=== PATIENT | female | born 1935 | race Caucasian/White ===

== ENCOUNTER 2016-06-17 14:50 | Emergency (ER) | payer MEDICARE, OTHER ==
[~2016-06-17] VITALS: Ht 165.1 cm; Wt 58.2 kg
[2016-06-17 15:10] VITALS: BP 150/61; PULSE 77; RESP 16; O2SAT 100
--- NOTE | 2016-06-17 17:08 | DRSVH ---
PROCEDURE: CT HIP LEFT W/O CONTRAST (38098) INDICATIONS: trauma/fall, suspicious x-ray TECHNIQUE: Noncontrast 3 mm axial sections acquired through the bony pelvis. Additional 3 mm axial sections acq uired through the symptomatic hip joint, with coronal and sagittal reformats. COMPARISON: [facility], CR, XR HIP 2VW LT, 06/16/2016, 17:23. FINDINGS: Image quality: Excellent. Bones: No displaced fracture visualized. Moderate-sized collar osteophytes and subchondral cystic payton nges are present at the hip joint. Severe degenerative changes are present in the visualized portions of the lumbar spine. Soft tissues: Visualized portions of bowel demonstrate normal caliber and are stool filled. No free p elvic fluid. The bladder is partially fluid-filled and thin-walled. IMPRESSION: Moderate osteoarthritis of the left hip. No displaced fractures visualized. Dictated by: Theresa Arroyo M.D. on 06/17/2016 at 16:59 Approved by: Theresa Arroyo M.D. on 06/17/2016 at 17:06
--- NOTE | 2016-06-17 17:35 | ED.REPORT ---
HPI-Hip/Pelvis Prob/Inj Date of Service Jun 17, 2016 ED Provider: Km Graham MD An 80 year old female with a history of balance and gait impairment presents to the ED complaining of hip pain onset after a fall that occurred 3 days ago.The pain causes difficultly with walking. Per , the patient was packing a bag that was on top of a bed in a motel room when she walked around the bed corner and tripped over bedding that was on the floor. Pain has been continuos since onset and the patient describes feeling"tilted" and that "nothing is working normally." Per , the pain is not as bad as it was on Thursday and he has to help her walk everywhere. The patient was seen yesterday at for radiograph which revealed a possible nondisplaced fracture. She was called today by and told to come into the ED with concern for fracture, and was told to get CT scan. The patient does not have a pacemaker. The patient and her were recently [place] [address] [place] where her skin was exposed to a lot of ice and debris.The patient reports that they have a weak bladder. Nursing Notes Stated Complaint: LEFT HIP PAIN AFTER FALL/SEEN AT [facility] Chief Complaint: Extremity Trauma Nursing Notes Reviewed: Yes (RetSKU not reconciled) Allergies: Coded Allergies: No Known Allergies (Unverified , 06/17/16) General Time Seen by Provider: 17:07 Chief Complaint Other (Hip pain) Hx Obtained From: Patient, Spouse Arrived By: Walk-in Onset Occurred: 3 days ago Symptom Duration: Since onset Severity: Current: Moderate Severity: Maximum: Moderate Recent Healthcare: Recent doctor visit Similar Sx Previous: No Past Medical History Past Medical History Balance and gait impairment. Has recieved Lymphedma therapy in the past. Denies having pacemaker. Review of Systems Review of Systems Note: Difficulty walking. Musculoskeletal: Reports: Extremity pain (hip pain) Complete sys rev & neg: except as marked. Respiratory: Denies: Non-productive cough Physical Exam Initial Vital Signs Vital Signs (First) Date Time Temp Pulse Resp B/P Pulse Ox O2 Delivery O2 Flow Rate FiO2 06/17/16 15:10 36.4 77 16 150/61 100 Room Air Initial VS: Reviewed, Vital signs normal Left Hip: Positive: Tenderness present... Can linternally and externally rotate eft hip without much pain. Can lift leg up without much pain. Left leg is neurovascularly intact. No visible wounds. General/Constitutional: Awake Patient is extremely demented and cannot give useful history. She is moving with no pain or discomfort. She has poor decision making capacity and limited insight. Head / Eyes: Atraumatic, Normocephalic, PERRL, EOMI Respiratory / Chest: Atraumatic, Breath sounds NL, Breath sounds = bilat, No respiratory distress, No rales, No rhonchi, No wheezing Cardiovascular: Heart rate NL, Regular rhythm, Heart sounds NL, No gallop, No murmurs, No rubs Abdomen: Atraumatic, No guarding, No rebound Skin: Warm, Dry Patient is cachectic. Neurologic Neurologic: Oriented X3, Speech NL ENT: Atraumatic, Mucous membranes moist Upper Extremity / MS: No swelling, No edema Wrist / Hand: No swelling, No edema Interpretation & Diagnostics Interpretation & Diagnostics: PROCEDURE: CT HIP LEFT W/O CONTRAST (12963) IMPRESSION: Moderate osteoarthritis of the left hip. No displaced fractures visualized. Dictated by: Theresa Arroyo M.D. on 06/17/2016 at 16:59 Approved by: Theresa Arroyo M.D. on 06/17/2016 at 17:06 PROCEDURE: MRI HIP LEFT WITHOUT CONTRAST ([id number] IMPRESSION: 1. Nondisplaced fracture of the anterior left acetabulum at the junction with the superior pubic ramus. 2. Mild muscle strains in the left adductor compartment. Dictated by: Elliot Allen M.D. on 06/17/2016 at 18:57 Approved by: Elliot Allen M.D. on 06/17/2016 at 19:04 Lab Results Interpretation Test 06/17/16 17:51 06/17/16 19:04 Hold Urine Received (Received) Urine Color Yellow (YELLOW) Urine Appearance Clear (CLEAR,HAZY) Urine pH 7.0 (5.0-8.0) Urine Specific [place] 1.010 (1.003-1.035) Urine Protein Negativemg/dL (NEG,TRACE) Urine Glucose (UA) Negativemg/dL (NEGATIVE) Urine Ketones Negativemg/dL (NEGATIVE) Urine Occult Blood Negative (NEGATIVE) Urine Nitrite Negative (NEGATIVE) Urine Bilirubin Negative (NEGATIVE) Urine Urobilinogen Normalmg/dL (NORMAL) Urine Leukocyte Esterase Negative (NEGATIVE) Urine RBC 0-2/hpf (0-2) Urine WBC 0-5/hpf (0-5) Urine Epithelial Cells Occasional/hpf (NONE-MOD) Urine Crystals None seen (NONE SEEN) Urine Bacteria None/hpf (NONE-FEW) Urine Hyaline Casts None/lpf (NONE) Urine Granular Casts None seen (NONE SEEN) Urine Waxy Casts None seen (NONE SEEN) Urine Red Blood Cell Casts None seen (NONE SEEN) Urine White Blood Cell Casts None seen (NONE SEEN) Urine Mucus None seen (None Seen) Urine Trichomonas None seen (NONE SEEN) Urine Yeast None (NONE SEEN) Urinalysis Comment None Urine Culture Reflexed Not indicated Lab Results Interpretation: UA negative Re-Eval/Medical Decision Med Decision/Clinical Course This is an 80-year-old severely demented female who is brought in by the received a phone call to come and regarding an over read of an x-ray obtained at urgent care. Patient fell 2 days ago it was a simple mechanical trip, but has been complaining of some soreness having pain with ambulation. Seen at urgent care where radiographs are negative initially, but there is concern for possible occult fracture and she barely signed in saying she was told to come and have a CT scan. The nurse's initiated orders and obtain the requested CT scan, which was negative. When I see the patient she appears well, she cannot give any useful history due to her dementia. She appears extremely well cared for however, and is quite energetic and moves quite comfortably without overt discomfort. The talks about how much difficulty she has been having a blading these past few days. Then discussed the case with the radiologist-given the CT was obtained rather than an MRI. But the patient does not have any contraindications to MRI, the radiologist agreed that if the concern was present for an occult fracture. Recommend pursuing the MRI-to the MRI was obtained, and is indeed positive for small occult fracture of the acetabulum near the pubic rami. This was then reviewed with the orthopedist does try to determine if transfer or admission were warranted, the orthopedist indicates that given the subtlety of this nature, that the patient can be cleared for touchdown weightbearing, does not require hospitalization can follow-up in the office be set up for physical therapy. Walker been provided, as well as a prescription for wheelchair to facilitate mobilization. The and the patient both very much wanted to go home. They would like to avoid any narcotics and the patient is actually able to stand with assistance and move around touchdown weightbearing fairly well here, so I think continuing Tylenol and/or ibuprofen are reasonable. Stressed both or even combining both to the family, the patient is discharged in stable condition. I contacted the on-call provider for the primary care physician facilitate follow-up and help make sure the patient really is set up for physical therapy, as the patient's at time it clear she is difficult to get into the hospital with her dementia is hard to follow instructions. Precautions are reviewed. He has been explained to the that she is having any difficulty, does not think she is safe at home, was having too much pain to return directly to the ED. The currently agrees as well that he is more than happy to take her home has been doing okay the past few days and thinks he will continue to be able to do well enough, but acknowledges that if he is having challenges to come on in. Source of Hx: Old records Re-Evaluation/Progress #1: Time of Eval: 19:07 Re-Evaluation/Progress Note: Rechecked patient and explained MRI test results. Re-Evaluation/Progress #2: Time of Eval: 19:16 Re-Evaluation/Progress Note: Rechecked patient and explained possible need for surgery. Explained that I am sending imaging to orthopedist. Re-Evaluation/Progress #3: Time of Eval: 19:37 Re-Evaluation/Progress Note: Rechekced patient and explained that Dr. Alejandre thinks that it is ok if the patient goes home. Patient understands and agrees with the plan. Consultation #1: Referral / Consult Name: Cyndie George MD Call Returned at: 17:54 Instrumentation Manager: Agrees with plan Note: Discussed patient case with Dr. George, Radiologist who suggests that the patient recieve an MRI. Consultation #2: Call Returned at: 19:04 Note: Discussed patient MRI results with Radiology who report that the patient is positive for an occult fracture, but it is in pubic ramus. Consultation #3: Referral / Consult Name: Rian Alejandre MD Call Returned at: 19:29 Note: Discussed patient case with Dr. Alejandre who is ok with the patient going home. Consultation #4: Referral / Consult Name: Glory Metz MD Call Returned at: 19:47 Instrumentation Manager: Will see patient, Agrees with eval, Agrees with plan Note: Discussed patient case with Dr. Metz who is covering for Dr. Mcgill. Dr. Metz will arrange for patient to have a follow-up appointment with Dr. Mcgill. Consultation #5: Referral / Consult Name: Glory Metz MD Call Returned at: 19:18 Note: Discussed patient case with Dr. Metz who is covering for Dr. Mcgill. Explained that the patient does not want to stay and wants to go home. Counseled Regarding: Diagnosis, Lab results Discharge & Departure Impression: Primary Impression: Left acetabular fracture Encounter type: initial encounter Sublocation of acetabulum: anterior wall Fracture type: closed Fracture alignment: nondisplaced Qualified Code: S32.415A - Nondisplaced fracture of anterior wall of left acetabulum, initial encounter for closed fracture Disposition: Home Discharge Condition All VS Reviewed: Yes Condition: Improved Additional Instructions: 1. While no fracture was appreciated on your Xray or your CT scan, a subtle fracture of the acetabulem was seen on the MRI. 2. The injury was reviewed with the orthopedist Dr. Alejandre who has indicated that you can continue touch down weightbearing. Use the walker - and I have written a prescription for a wheelchair as well. 3. Tomorrow morning, call the the orthopedist Dr. Hardin's office for an appointment. They will help set you up with physical therapy. 4. I have also talked with Dr. Mcgill' office and asked them to give you a call for an appointment to make sure everything gets set up. 5. Give tylenol 1000mg up to 3 times a day for pain 6. And/or you could give ibuprofen 400mg three times a day. 7. Return if new or worsening symptoms Referrals: Harriet Mcgill MD (PCP) Yoniibnicole Attestation Portions of this note were transcribed by Mat Mayer. I, Dr. Graham personally performed the history, physical exam and medical decision-making; I reviewed and confirmed the accuracy of the information in the transcribed note. Signed by: Migdalia Ponce, 06/17/2016 [id number]. copies to: Harriet Mcgill MD; Rian Alejandre MD, Matthew F MD Jun 17, 2016 17:35 Mat Mayer Jun 17, 2016 17:36
--- NOTE | 2016-06-17 19:11 | DRSVH ---
PROCEDURE: MRI HIP LEFT WITHOUT CONTRAST ([id number]) INDICATIONS: 80 year-old female status post fall with possible nondisplaced hip fracture. TECHNIQUE: Noncontrast axial and coronal T1 spin echo and STIR through the bony pelvis. Patient refused additio nal images. COMPARISON: [facility], CR, XR HIP 2VW LT, 06/16/2016, 17:23. [facility], C T, CT HIP LT WO CON, 06/17/2016, 16:23. FINDINGS: Image quality: There is slight motion artifact. Bones and joints: Bone marrow of the pelvic ring and proximal femurs demonstrate normal signal. The re is a nondisplaced fracture involving the anterior left acetabulum at the junction with the superio r pubic ramus. There is extension to the medial left hip. The proximal femurs appear intact. Soft tissues: There is mild edema within the left adductor compartment compatible with mild muscle s trains. The gluteal, iliopsoas, and hamstring tendons appear intact. No free fluid within the visua lized pelvis. Visualized bowel loops are normal in caliber. There is mild dependent edema lateral t o the left hip consistent with a soft tissue contusion without a discrete fluid collection. IMPRESSION: 1. Nondisplaced fracture of the anterior left acetabulum at the junction with the superior pubic thomas us. 2. Mild muscle strains in the left adductor compartment. Dictated by: Elliot Allen M.D. on 06/17/2016 at 18:57 Approved by: Elliot Allen M.D. on 06/17/2016 at 19:04
[2016-06-17 19:30] LABS: APPEARANCE,URINE CLEAR (CLEAR,HAZY); COLOR,URINE YELLOW (YELLOW); OCCULT BLOOD,URINE NEGATIVE (NEGATIVE)
[2016-06-17 19:31] LABS: UROBILINOGEN,URINE NORMAL (NORMAL)
== END 2016-06-17 20:14 | disposition home or self-care (01) ==
LOC: SED 14:50
DX: S32.415A Nondisplaced fracture of anterior wall of left acetabulum, initial encounter for closed fracture (principal); W01.0XXA Fall on same level from slipping, tripping and stumbling without subsequent striking against object, initial encounter; Y93.89 Activity, other specified; Y92.009 Unspecified place in unspecified non-institutional (private) residence as the place of occurrence of the external cause; Y99.8 Other external cause status